=== PATIENT | male | born 1965 | race Caucasian/White ===

== ENCOUNTER 2017-06-29 03:54 | Emergency (ER) | payer SELFPAY ==
[~2017-06-29] VITALS: Ht 180.3 cm; Wt 92.3 kg
[2017-06-29] MEDS ORDERED: HYDROcodone/APAP 5/325 TABLET PO ONE (05:00)
[2017-06-29] MEDS ORDERED: HYDROcodone/APAP 5/325 TABLET ONE (05:02)
[2017-06-29 06:13] VITALS: BP 161/108
== END 2017-06-29 06:14 | disposition home or self-care (01) ==
LOC: ED 05:27
DX: K08.89 Other specified disorders of teeth and supporting structures (principal)
CPT/HCPCS: 99283

== ENCOUNTER 2017-10-12 19:31 | Inpatient (IN) | payer OTHER, MEDICAID ==
[~2017-10-12] VITALS: Ht 180.3 cm; Wt 90.0 kg
[2017-10-12] MEDS ORDERED: SODIUM CHLORIDE 0.9% 1,000 ML IV ONE (19:56)
[2017-10-12] MEDS ORDERED: SODIUM CHLORIDE FLUSH 10ML SYR IVF ONE (20:00)
[2017-10-12] MEDS ORDERED: SODIUM CHLORIDE 0.9% 1,000ML IVBOLUS ONE (20:00)
[2017-10-12] MEDS ORDERED: MORPHINE SULFATE 4 MG/ML, 1ML ONE ×2 (20:12→22:13)
[2017-10-12] MEDS: MORPHINE SULFATE 4 MG/ML, 1ML IVPush PRN ×2 (20:21→22:17)
[2017-10-12 20:24] LABS: BASOPHILS # (AUTO) 0.11 x10^3/uL (0-0.1); BASOPHILS % (AUTO) 1 % (0-1); EOSINOPHILS # (AUTO) 0.03 x10^3/uL (0-0.4); EOSINOPHILS % (AUTO) 0 % (1-7); LYMPHOCYTES # (AUTO) 2.79 x10^3/uL (1-3.4); LYMPHOCYTES % (AUTO) 29 % (22-44); MD NO; MEAN CORPUSCULAR HEMOGLOBIN 33.5 pg (27.5-34.5); MEAN CORPUSCULAR VOLUME 98.3 fL (81-97); MEAN PLATELET VOLUME 7.8 fL (7.4-10.4); MONOCYTES # (AUTO) 0.63 x10^3/uL (0.2-0.8); MONOCYTES % (AUTO) 7 % (2-9); NEUTROPHILS # (AUTO) 6.14 x10^3/uL (1.8-6.8); NEUTROPHILS % (AUTO) 63 % (42-75); PLATELET COUNT 194 x10^3/uL (130-400); RED BLOOD COUNT 4.61 x10^6/uL (4.38-5.82); RED CELL DISTRIBUTION WIDTH 13.5 % (9.4-14.8)
[2017-10-12 20:29] LABS: INTERNATIONAL NORMALIZED RATIO 1.26 (0.93-1.1)
[2017-10-12 20:31] LABS: CHLORIDE 105 mmol/L (98-107)
[2017-10-12 20:32] LABS: ALANINE AMINOTRANSFERASE 145 U/L (12-78); ALBUMIN 3.5 g/dL (3.4-5.0); ANION GAP 12 mmol/L (5-15); CALCIUM 8.9 mg/dL (8.5-10.1); CREATININE 0.75 mg/dL (0.7-1.3)
[2017-10-12 20:34] LABS: ALKALINE PHOSPHATASE 86 U/L (45-117); BILIRUBIN,TOTAL 0.5 mg/dL (0.2-1.0); TOTAL PROTEIN 8.2 g/dL (6.4-8.2)
[2017-10-12] MEDS ORDERED: ONDANSETRON ODT 4 MG ONE (22:13)
[2017-10-12] MEDS ORDERED: LISI2.5T PO (22:18)
[2017-10-12] MEDS ORDERED: ONDANSETRON ODT 4 MG PO ONE (22:30)
[2017-10-12] MEDS ORDERED: SODIUM CHLORIDE FLUSH 10ML SYR IVF PRN (22:30)
[2017-10-12 22:55] LABS: MICROSCOPIC NOT IND
[2017-10-12] MEDS ORDERED: ONDANSETRON 2MG/ML, 2ML IVPush PRN (23:00)
[2017-10-12] MEDS ORDERED: ENALAPRILAT 1.25 MG/ML, 2ML IVPush PRN (23:00)
[2017-10-12 23:04] LABS: CULTURE INDICATED? NO
[2017-10-12 23:15] VITALS: BP 152/89
[2017-10-12 23:23] LABS: FOLATE LEVEL > 20.0 ng/mL (3.1-17.5)
[2017-10-12] MEDS: morphine SULFATE 10 MG/ML, 1ML IVPush PRN (23:46)
[2017-10-13] MEDS: NS + 20MEQ KCL 1,000 ML IV SCH ×3 (00:14→21:14)
[2017-10-13 01:06] VITALS: BP 147/95
[2017-10-13] MEDS: morphine SULFATE 10 MG/ML, 1ML IVPush PRN ×4 (01:50→12:12)
[2017-10-13] MEDS: HEPARIN 5,000 UNITS/ML, 1ML SQ SCH ×3 (01:51→17:17)
[2017-10-13] MEDS: BISACODYL 10 MG SUPP PR SCH ×2 (01:51→10:12)
[2017-10-13 04:59] LABS: BASOPHILS # (AUTO) 0.03 x10^3/uL (0-0.1); BASOPHILS % (AUTO) 0 % (0-1); EOSINOPHILS # (AUTO) 0.04 x10^3/uL (0-0.4); EOSINOPHILS % (AUTO) 0 % (1-7); LYMPHOCYTES # (AUTO) 1.88 x10^3/uL (1-3.4); LYMPHOCYTES % (AUTO) 17 % (22-44); MD NO; MEAN CORPUSCULAR HEMOGLOBIN 33.8 pg (27.5-34.5); MEAN CORPUSCULAR HGB CONC 34.4 g/dL (33.2-36.2); MEAN CORPUSCULAR VOLUME 98.3 fL (81-97); MEAN PLATELET VOLUME 8.5 fL (7.4-10.4); MONOCYTES # (AUTO) 0.68 x10^3/uL (0.2-0.8); MONOCYTES % (AUTO) 6 % (2-9); NEUTROPHILS # (AUTO) 8.32 x10^3/uL (1.8-6.8); NEUTROPHILS % (AUTO) 76 % (42-75); PLATELET COUNT 161 x10^3/uL (130-400); RED BLOOD COUNT 4.36 x10^6/uL (4.38-5.82); RED CELL DISTRIBUTION WIDTH 13.3 % (9.4-14.8)
[2017-10-13 05:08] LABS: CHLORIDE 107 mmol/L (98-107)
[2017-10-13] MEDS ORDERED: OMNIPAQUE 350 MG/ML, 100ML BOTTLE ONE (05:10)
[2017-10-13 05:16] LABS: ALANINE AMINOTRANSFERASE 133 U/L (12-78); ALBUMIN 3.3 g/dL (3.4-5.0); ALKALINE PHOSPHATASE 90 U/L (45-117); ANION GAP 6 mmol/L (5-15); BILIRUBIN,TOTAL 0.9 mg/dL (0.2-1.0); CALCIUM 8.1 mg/dL (8.5-10.1); CREATININE 0.82 mg/dL (0.7-1.3); TOTAL PROTEIN 7.8 g/dL (6.4-8.2)
[2017-10-13 06:58] VITALS: BP 151/93
[2017-10-13] MEDS ORDERED: KETOROLAC 30 MG/1 ML IVPush ONE (09:30)
[2017-10-13] MEDS ORDERED: KETOROLAC 30 MG/1 ML IVPush PRN (14:30)
[2017-10-13] MEDS: METOCLOPRAMIDE 5 MG/ML, 2ML IVPush SCH ×2 (14:54→21:14)
[2017-10-13 14:57] VITALS: BP 132/95
[2017-10-13 19:07] VITALS: BP 145/92
[2017-10-14 01:42] VITALS: BP 121/77
[2017-10-14] MEDS: HEPARIN 5,000 UNITS/ML, 1ML SQ SCH ×2 (02:10→10:30)
[2017-10-14] MEDS: METOCLOPRAMIDE 5 MG/ML, 2ML IVPush SCH ×3 (02:11→14:30)
[2017-10-14 05:13] LABS: ALBUMIN 2.8 g/dL (3.4-5.0); ANION GAP 5 mmol/L (5-15); CALCIUM 7.6 mg/dL (8.5-10.1); CHLORIDE 110 mmol/L (98-107)
[2017-10-14 05:15] LABS: BASOPHILS # (AUTO) 0.01 x10^3/uL (0-0.1); BASOPHILS % (AUTO) 0 % (0-1); EOSINOPHILS # (AUTO) 0.04 x10^3/uL (0-0.4); EOSINOPHILS % (AUTO) 1 % (1-7); LYMPHOCYTES # (AUTO) 1.61 x10^3/uL (1-3.4); LYMPHOCYTES % (AUTO) 38 % (22-44); MD NO; MEAN CORPUSCULAR HEMOGLOBIN 33.1 pg (27.5-34.5); MEAN CORPUSCULAR HGB CONC 33.6 g/dL (33.2-36.2); MEAN CORPUSCULAR VOLUME 98.6 fL (81-97); MEAN PLATELET VOLUME 8.4 fL (7.4-10.4); MONOCYTES # (AUTO) 0.45 x10^3/uL (0.2-0.8); MONOCYTES % (AUTO) 11 % (2-9); NEUTROPHILS # (AUTO) 2.17 x10^3/uL (1.8-6.8); NEUTROPHILS % (AUTO) 51 % (42-75); PLATELET COUNT 117 x10^3/uL (130-400); RED BLOOD COUNT 3.87 x10^6/uL (4.38-5.82); RED CELL DISTRIBUTION WIDTH 13.8 % (9.4-14.8)
[2017-10-14 05:17] LABS: ALANINE AMINOTRANSFERASE 115 U/L (12-78); ALKALINE PHOSPHATASE 76 U/L (45-117); BILIRUBIN,TOTAL 0.9 mg/dL (0.2-1.0); CREATININE 0.73 mg/dL (0.7-1.3); TOTAL PROTEIN 6.7 g/dL (6.4-8.2)
[2017-10-14] MEDS: NS + 20MEQ KCL 1,000 ML IV SCH (06:46)
[2017-10-14 07:02] VITALS: BP 147/92
[2017-10-14] MEDS: BISACODYL 10 MG SUPP PR SCH (08:44)
[2017-10-14 13:29] VITALS: BP 156/90
== END 2017-10-14 16:10 | disposition home or self-care (01) | DRG 389 ==
LOC: ED 22:30 → 4NOR 22:36 → DCLOUNGE 10-14 16:00
PROVIDERS: ADMIT Internal Medicine; ATTEND Internal Medicine
DX: K56.609 Unspecified intestinal obstruction, unspecified as to partial versus complete obstruction (principal); E87.2 Acidosis; D68.9 Coagulation defect, unspecified; E44.1 Mild protein-calorie malnutrition; D53.9 Nutritional anemia, unspecified; Z68.27 Body mass index [BMI] 27.0-27.9, adult; I10 Essential (primary) hypertension; Z66 Do not resuscitate; D75.89 Other specified diseases of blood and blood-forming organs; D72.829 Elevated white blood cell count, unspecified; K74.60 Unspecified cirrhosis of liver
CPT/HCPCS: 36415; 74018; 74022; 74177; 80053; 80074; 81003; 82607; 82746; 83690; 85025; 85610; 85730; 87521; 93005; 96361; 96374; 96376; J1644; J1885; J3480; Q0162; Q9967; J2270; J2765; J7030

== ENCOUNTER 2018-12-09 16:11 | Emergency (ER) | payer MEDICAID, OTHER ==
[~2018-12-09] VITALS: Ht 180.3 cm; Wt 96.3 kg
[~2018-12-09 16:11] MED LIST: LISI2.5T PO
--- NOTE | 2018-12-09 16:54 | NUR ---
FIRST CONTACT WITH PT. Pt resting on [place] guarding right leg. Per pt, "I tore my right meniscus about 5 months ago. I can't walk without having excrutiating pain. I live close by and walked here though. I havn't seen an material specialist yet though." Pt denies cp, sob, n/v/d, syncope, or loss of CMS. Call light within reach.
[2018-12-09] MEDS ORDERED: HYDROcodone/APAP 5/325 TABLET PO STA (16:59)
[2018-12-09] MEDS ORDERED: KETOROLAC 30 MG/1 ML ONE (17:00)
[2018-12-09] MEDS ORDERED: HYDROcodone/APAP 5/325 TABLET ONE (17:00)
[2018-12-09] MEDS ORDERED: KETOROLAC 30 MG/1 ML IM ONE (17:00)
[2018-12-09 18:52] VITALS: BP 150/98
--- NOTE | 2018-12-09 19:01 | NUR ---
Provided report to GALO Eng and GALO Ordaz. All questions answered. GALO Eng and Sushma RN to assume care of pt.
--- NOTE | 2018-12-09 19:07 | NUR ---
Patient given discharge instructions and they have confirmed that they understand the instructions. Patient ambulatory with steady gait.
== END 2018-12-09 19:09 | disposition home or self-care (01) ==
LOC: ED 17:40
DX: M71.21 Synovial cyst of popliteal space [Baker], right knee (principal); M25.561 Pain in right knee
CPT/HCPCS: 76881; 96372; 99284; J1885